=== PATIENT | female | born 1995 | race Caucasian/White ===

== ENCOUNTER → 2019-10-28 | Outpatient (CLI) | payer BC ==
--- NOTE | 2019-10-28 13:53 | KCIC ---
Transabdominal and transvaginal pelvic ultrasound 10/28/2019 INDICATION: Left lower quadrant pain. Evaluate IUD position. COMPARISON STUDY: None Discussion: Ultrasound evaluation of the pelvis performed transabdominally and transvaginally. Static images are submitted to PACS. Uterus measures 9.6 x 5.0 x 3.3 cm. Endometrial thickness is approximately 7 mm. Intrauterine device noted, normal in position. Trace free fluid is seen in the pelvis. Visualized bladder is unremarkable. The right ovary measures 2.2 x 3.9 x 1.5 cm containing 1.8 cm dominant follicle. Left ovary measures 3.1 x 2.6 x 1.7 cm. Blood flow the ovaries is unremarkable in color Doppler imaging including spectral analysis. IMPRESSION: 1. Intrauterine device, and expected location 2. Trace free fluid, most commonly physiologic in a premenopausal patient. Electronically signed by: Rupesh Underwood MD (10/28/2019 1:51 PM) [id number]
== END | disposition home or self-care (01) ==
LOC: KCIC US 12:23
PROVIDERS: ATTEND Nurse Practitioner Women's Health
DX: R10.32 Left lower quadrant pain (principal)
CPT/HCPCS: 76830; 76856